=== PATIENT | male | born 1995 | race Caucasian/White ===

== ENCOUNTER 2024-11-03 08:35 | Emergency (ER) | payer OTHER, BC ==
[~2024-11-03] VITALS: Ht 182.9 cm; Wt 77.1 kg
[2024-11-03 10:00] VITALS: BP 126/78
== END 2024-11-03 10:00 | disposition home or self-care (01) ==
LOC: ER 08:35
DX: M79.672 Pain in left foot (principal)
CPT/HCPCS: 99282